=== PATIENT | male | born 1960 | race African-American/Black ===

== ENCOUNTER 2021-03-25 17:46 | Emergency (ER) | payer MEDICAID ==
[~2021-03-25] VITALS: Ht 188 cm; Wt 91.0 kg
[2021-03-25] MEDS ORDERED: DIPHENHYDRAMINE 50MG/ML VIAL IM STA (18:14)
[2021-03-25] MEDS ORDERED: LORAZEPAM 2MG/ML CPJ IM STA (18:14)
[2021-03-25] MEDS ORDERED: HALOPERIDOL LACTATE 5MG/ML VIAL IM STA (18:14)
[2021-03-25 18:42] LABS: BASOPHILS % 0.6 % (0.0-2.0); HEMATOCRIT. 46.3 % (42.0-52.0); HEMOGLOBIN. 15.4 g/dL (14.0-18.0); LYMPHOCYTES % 30.1 % (20.0-50.0); MEAN CORPUSCULAR HEMOGLOBIN 29.5 pg (28.0-32.0); MEAN CORPUSCULAR VOLUME 88.7 fL (80.0-94.0); MONOCYTES % 7.8 % (2.0-8.0); NEUTROPHILS % 61.5 % (40.0-76.0); PLATELET 251 x1000/uL (130-400); RED BLOOD CELL COUNT 5.22 mill/uL (4.7-6.1); RED CELL DISTRIBUTION WIDTH 14.3 % (11.6-14.6)
[2021-03-25 18:47] LABS: CHLORIDE 98 mEq/L (98-107)
[2021-03-25 19:06] LABS: ETHANOL BLOOD 413 mg/dL
[2021-03-25] MEDS ORDERED: INSULIN REGULAR (HUMULIN R) 300UNITS/3ML VIAL IV SCH (19:15)
[2021-03-25] MEDS ORDERED: SODIUM CHLORIDE 0.9% 1,000 ML IV ONE (19:15)
[2021-03-25 22:30] VITALS: BP 132/73
== END 2021-03-25 23:59 | disposition home or self-care (01) ==
LOC: ER 17:46 → CANBEDREQ 03-26 08:54
DX: S82.401A Unspecified fracture of shaft of right fibula, initial encounter for closed fracture (principal); F10.129 Alcohol abuse with intoxication, unspecified; V49.9XXA Car occupant (driver) (passenger) injured in unspecified traffic accident, initial encounter; Y93.89 Activity, other specified; Y92.89 Other specified places as the place of occurrence of the external cause; Y99.8 Other external cause status; Y90.8 Blood alcohol level of 240 mg/100 ml or more
CPT/HCPCS: 29515; 36415; 73610; 80053; 80320; 85025; 96372; 99284; J1200; J1630; J2060; G0480